=== PATIENT | female | born 1955 | race Caucasian/White ===

== ENCOUNTER → 2019-01-26 | Outpatient (REF) | payer MEDICARE ==
[2019-01-26 19:56] LABS: ALBUMIN 3.9 GM/DL (3.2-5.2); BILIRUBIN,TOTAL 0.3 MG/DL (0.2-1.0); CALCIUM LEVEL 9.1 MG/DL (8.8-10.2); CHOLESTEROL RISK RATIO 2.612 (<5); CREATININE FOR GFR 1.36 MG/DL (0.55-1.30); GLOMERULAR FILTRATION RATE 41.7 (>45); POTASSIUM SERUM 4.6 MEQ/L (3.5-5.1); TOTAL PROTEIN 6.8 GM/DL (6.4-8.2)
[2019-01-26 22:45] LABS: HEMOGLOBIN A1c 7.6 %
[2019-01-30 08:18] LABS: ANTI DOUBLE STRAND-DNA AB 1 IU/mL (0-9); ANTINUCLEAR ANTIBODIES DIRECT Positive (Negative); RNP ANTIBODIES <0.2 AI (0.0-0.9); SJOGREN'S ANTI SS-A <0.2 AI (0.0-0.9); SJOGREN'S ANTI SS-B <0.2 AI (0.0-0.9); SMITH ANTIBODIES <0.2 AI (0.0-0.9)
== END ==
LOC: M LABDRWAD 19:17
DX: M25.50 Pain in unspecified joint (principal); E11.9 Type 2 diabetes mellitus without complications; E78.00 Pure hypercholesterolemia, unspecified

== ENCOUNTER 2020-11-21 12:17 | Emergency (ER) | payer MEDICARE ==
[~2020-11-21] VITALS: Ht 170.2 cm; Wt 159.1 kg
[2020-11-21 14:37] LABS: BASO % 0.4 % (0.0-1.0); EOS # 0.1 10^3/uL (0.0-0.5); EOS % 1.4 % (0.0-3.0); HEMATOCRIT 34.3 % (36.0-47.0); LYMPH # 1.9 10^3/uL (1.5-5.0); LYMPH % 26.3 % (24.0-44.0); MEAN CORPUSCULAR HGB CONC 32.1 g/dl (32.0-36.5); MEAN CORPUSCULAR VOLUME 96.6 fl (80.0-96.0); MONO # 0.6 10^3/uL (0.0-0.8); MONO % 8.1 % (2.0-8.0); NEUTROPHILS # 4.5 10^3/uL (1.5-8.5); NEUTROPHILS % 63.1 % (36.0-66.0); PLATELET COUNT, AUTOMATED 207 10^3/uL (150-450); RED BLOOD COUNT 3.55 10^6/uL (4.00-5.40); WHITE BLOOD COUNT 7.1 10^3/uL (4.0-10.0)
[2020-11-21 15:01] LABS: ERYTHROCYTE SEDIMENTATION RATE 35 mm/hr (0-30)
[2020-11-21 15:12] LABS: ALBUMIN 3.4 GM/DL (3.2-5.2); BILIRUBIN,TOTAL 0.3 MG/DL (0.2-1.0); C REACTIVE PROTEIN QUANTITATIV 0.3 MG/DL (0.00-0.30); CALCIUM LEVEL 9.3 MG/DL (8.8-10.2); CREATININE FOR GFR 1.19 MG/DL (0.55-1.30); GLOMERULAR FILTRATION RATE 48.3 (>45); POTASSIUM SERUM 5.6 MEQ/L (3.5-5.1); TOTAL PROTEIN 6.3 GM/DL (6.4-8.2)
[2020-11-21 17:59] VITALS: BP 182/76
--- NOTE | 2020-11-21 18:16 | REPVR ---
PROCEDURE INFORMATION: Exam: MR Lumbar Spine Without Contrast Exam date and time: 11/21/2020 1:46 PM Age: 65 years old Clinical indication: Low back pain; Additional info: Back pain, R/O cauda equina TECHNIQUE: Imaging protocol: Multiplanar magnetic resonance images of the lumbar spine without intravenous contrast. COMPARISON: No relevant prior studies available. FINDINGS: Vertebrae: Unremarkable. Spinal cord: Normal signal. No cord compression. L1-L2: No significant disc disease. No significant spinal canal stenosis. No neural foraminal stenosis. L2-L3: There is a mild degenerative central spinal stenosis at L2-L3 secondary to diffuse annular bulging, thickened ligamentum flavum without significant facet joint arthropathy. Moderate bilateral lateral recess narrowing. Mild bilateral foraminal narrowing. L3-L4: There is a moderate degenerative central spinal stenosis at L3-L4 secondary to diffuse annular bulging, thickened ligamentum flavum with bilateral facet joint arthropathy. Mild bilateral lateral recess narrowing. Mild bilateral foraminal narrowing. L4-L5: Diffusely bulging annulus L4-L5 without neural compromise. Bilateral facet joint arthropathy. Mild bilateral foraminal narrowing. L5-S1: Diffusely bulging annulus L5-S1 without neural compromise. Mild bilateral facet joint arthropathy. Mild bilateral foraminal narrowing. Soft tissues: Unremarkable. IMPRESSION: 1. Degenerative spondylosis with a mild degenerative central spinal stenosis at L2-L3, moderate degenerative spinal stenosis at L3-L4. Diffusely bulging annuli demonstrated L4-L5 and L5-S1 without neural compromise. 2. Bilateral foraminal narrowing from L2-L3 to L5-S1. Bilateral lateral recess narrowing at L2-L3 and L3-L4. Electronically signed by: Dominick Romo On 11/21/2020 18:15:42 PM
[2020-11-21] MEDS ORDERED: NEUR100C PO (18:40)
--- NOTE | 2020-11-23 08:19 | ED PDOC ---
Post-Departure Follow-Up radiology report faxed to Sia Rebollar MD November 23, 2020 08:19
== END 2020-11-21 19:45 | disposition home or self-care (01) ==
LOC: M ED 12:17
DX: M47.26 Other spondylosis with radiculopathy, lumbar region (principal); M48.061 Spinal stenosis, lumbar region without neurogenic claudication; M48.07 Spinal stenosis, lumbosacral region; M51.86 Other intervertebral disc disorders, lumbar region; E11.9 Type 2 diabetes mellitus without complications; I10 Essential (primary) hypertension; E78.5 Hyperlipidemia, unspecified; Z88.0 Allergy status to penicillin; Z88.2 Allergy status to sulfonamides

== ENCOUNTER → 2021-01-06 | Outpatient (REF) | payer MEDICARE ==
[~2021-01-06] MED LIST: NEUR100C PO
[2021-01-06 19:29] LABS: HEMATOCRIT 36.1 % (36.0-47.0); HEMOGLOBIN 11.5 g/dl (12.0-15.5); MEAN CORPUSCULAR HGB CONC 31.9 g/dl (32.0-36.5); MEAN CORPUSCULAR VOLUME 97.3 fl (80.0-96.0); PLATELET COUNT, AUTOMATED 206 10^3/uL (150-450); RED BLOOD COUNT 3.71 10^6/uL (4.00-5.40); WHITE BLOOD COUNT 7.6 10^3/uL (4.0-10.0)
[2021-01-06 19:53] LABS: HEMOGLOBIN A1c 6.4 %
[2021-01-06 20:07] LABS: ALBUMIN 3.8 GM/DL (3.2-5.2); BILIRUBIN,TOTAL 0.4 MG/DL (0.2-1.0); CALCIUM LEVEL 8.7 MG/DL (8.8-10.2); CHOLESTEROL RISK RATIO 2.468 (<5); CREATININE FOR GFR 1.26 MG/DL (0.55-1.30); GLOMERULAR FILTRATION RATE 45.2 (>45); POTASSIUM SERUM 4.9 MEQ/L (3.5-5.1); THYROID STIMULATING HORMONE 6.06 uIU/ML (0.358-3.740); TOTAL PROTEIN 6.7 GM/DL (6.4-8.2)
== END ==
LOC: M LABDRWAD 18:56
PROVIDERS: ATTEND Family Medicine
DX: I10 Essential (primary) hypertension (principal); E11.9 Type 2 diabetes mellitus without complications

== ENCOUNTER 2022-01-29 17:49 | Observation (INO) | payer MEDICARE ==
[~2022-01-29] VITALS: Ht 170.2 cm; Wt 157.3 kg
[~2022-01-29 17:49] MED LIST changes: -ACTO30TA15 PO; -ALLO100T PO; -AMLO1TAB24 PO; -ATOR1TAB19 PO; -CYAN100050 PO; -INSUN SC; -INSUR SC; -LISI20TA33 PO; -VITA100093 PO; -VITMTA PO
[2022-01-29 19:33] LABS: HEMATOCRIT 33.7 % (36.0-47.0); HEMOGLOBIN 11.2 g/dl (12.0-15.5); MEAN CORPUSCULAR HEMOGLOBIN 30.7 pg (27.0-33.0); MEAN CORPUSCULAR HGB CONC 33.2 g/dl (32.0-36.5); MEAN CORPUSCULAR VOLUME 92.3 fl (80.0-96.0); PLATELET COUNT, AUTOMATED 242 10^3/uL (150-450); RED BLOOD COUNT 3.65 10^6/uL (4.00-5.40); WHITE BLOOD COUNT 10.1 10^3/uL (4.0-10.0)
[2022-01-29 20:02] LABS: BLOOD UREA NITROGEN 23 MG/DL (7-18); CALCIUM LEVEL 8.9 MG/DL (8.8-10.2); CARBON DIOXIDE LEVEL 27 MEQ/L (21-32); CHLORIDE LEVEL 94 MEQ/L (98-107); CREATININE FOR GFR 1.31 MG/DL (0.55-1.30); GLOMERULAR FILTRATION RATE 43.1 (>45); GLUCOSE, FASTING 121 MG/DL (70-100); MAGNESIUM LEVEL 1.7 MG/DL (1.8-2.4); PHOSPHORUS LEVEL 3.1 MG/DL (2.5-4.9); POTASSIUM SERUM 4.8 MEQ/L (3.5-5.1); SODIUM LEVEL 128 MEQ/L (136-145)
[2022-01-29 21:21] LABS: OSMOLALITY SERUM 269 MOSM/KG (280-301)
[2022-01-29 21:31] LABS: ETHYL ALCOHOL (ETHANOL) < 0.003 % (0.000-0.010)
[2022-01-29] MEDS ORDERED: MAG SULF 1GM/100ML (MAG RUN) 1 GM in IV 1 EA IV ONE (22:25)
[2022-01-29] MEDS ORDERED: NS 1,000 ML IV ONE (22:25)
[2022-01-29] MEDS ORDERED: ISOVUE-370 76% 100ML VIAL As Ordered ONE (22:26)
[2022-01-29] MEDS ORDERED: MAGNESIUM OXIDE 400MG TAB (MAG-OX) PO ONE (22:30)
[2022-01-29 23:43] LABS: RSV AMPLIFICATION NEGATIVE (NEGATIVE)
[2022-01-29 23:52] LABS: OSMOLALITY URINE 198 MOSM/KG (50-1400)
[2022-01-29 23:58] LABS: APPEARANCE, URINE CLEAR (CLEAR); BACTERIA, URINE AUTO NEGATIVE (NEGATIVE); BILIRUBIN, URINE AUTO NEGATIVE (NEGATIVE); BLOOD, URINE BLOOD NEGATIVE (NEGATIVE); COLOR, URINE STRAW (YELLOW); GLUCOSE, URINE (UA) AUTO NEGATIVE (NEGATIVE); KETONE, URINE AUTO NEGATIVE (NEGATIVE); LEUKOCYTE ESTERASE, URINE AUTO 2+ (NEGATIVE); NITRITE, URINE AUTO NEGATIVE (NEGATIVE); PROTEIN, URINE AUTO NEGATIVE (NEGATIVE); RBC, URINE AUTO 0 /HPF (0-3); SPECIFIC GRAVITY URINE AUTO 1.013 (1.002-1.035); SQUAMOUS EPITHELIAL CELL UR AU 0 /HPF (0-6); UROBILINOGEN, URINE AUTO 0.2 mg/dL (0.0-2.0); WBC, URINE AUTO 6 /HPF (0-3)
[2022-01-30 00:17] LABS: SODIUM,RANDOM URINE 35 MEQ/L
[2022-01-30] MEDS ORDERED: ACETAMINOPHEN TAB 650MG DOSE (2X325MG) PO PRN (02:55)
[2022-01-30] MEDS ORDERED: NS 1,000 ML IV SCH (02:55)
[2022-01-30 03:05] VITALS: BP 148/88
[2022-01-30] MEDS ORDERED: amLODIPine 5 MG TAB PO ONE (03:05)
[2022-01-30 03:27] VITALS: BP 148/88
[2022-01-30] MEDS ORDERED: ACTO30TA15 PO (03:31)
[2022-01-30] MEDS ORDERED: INSUN SC (03:31)
[2022-01-30] MEDS ORDERED: LISI20TA33 PO (03:31)
[2022-01-30] MEDS ORDERED: VITA100093 PO (03:31)
[2022-01-30] MEDS ORDERED: VITMTA PO (03:31)
[2022-01-30] MEDS ORDERED: ATOR1TAB19 PO (03:31)
[2022-01-30] MEDS ORDERED: INSUR SC (03:31)
[2022-01-30] MEDS ORDERED: ALLO100T PO (03:31)
[2022-01-30] MEDS ORDERED: CYAN100050 PO (03:31)
[2022-01-30] MEDS ORDERED: HOME MED LIST COMPLETE! XX SCH (03:35)
[2022-01-30 08:31] LABS: BASO % 0.1 % (0.0-1.0); EOS # 0.1 10^3/uL (0.0-0.5); HEMOGLOBIN 10.7 g/dl (12.0-15.5); LYMPH # 1.5 10^3/uL (1.5-5.0); LYMPH % 20.6 % (24.0-44.0); MEAN CORPUSCULAR HEMOGLOBIN 31.1 pg (27.0-33.0); MEAN CORPUSCULAR HGB CONC 33.4 g/dl (32.0-36.5); MONO # 0.5 10^3/uL (0.0-0.8); MONO % 7.4 % (2.0-8.0); NEUTROPHILS % 70.5 % (36.0-66.0); PLATELET COUNT, AUTOMATED 215 10^3/uL (150-450); RED BLOOD COUNT 3.44 10^6/uL (4.00-5.40)
[2022-01-30] MEDS ORDERED: GLUCAGON INJ 1MG VIAL SC PRN (08:35)
[2022-01-30] MEDS ORDERED: GLUCOSE 4GM CHEW TABLET PO PRN (08:35)
[2022-01-30] MEDS ORDERED: DEXTROSE 50% 50 ML SYRINGE IV PRN (08:35)
[2022-01-30 09:02] LABS: CALCIUM LEVEL 8.8 MG/DL (8.8-10.2); CREATININE FOR GFR 1.16 MG/DL (0.55-1.30); GLOMERULAR FILTRATION RATE 49.6 (>45); POTASSIUM SERUM 4.7 MEQ/L (3.5-5.1)
[2022-01-30 09:52] LABS: MAGNESIUM LEVEL 1.9 MG/DL (1.8-2.4)
[2022-01-30] MEDS ORDERED: AMLO1TAB24 PO (10:29)
[2022-01-30] MEDS ORDERED: INSULIN LISPRO (NovoLOG) PER UNIT SC SCH ×2 (12:00→21:00)
== END 2022-01-30 13:05 | disposition home or self-care (01) ==
LOC: M ED 17:49 → M ED INP 17:50
PROVIDERS: ADMIT Internal Medicine; ATTEND Internal Medicine
DX: E87.1 Hypo-osmolality and hyponatremia (principal); C92.01 Acute myeloblastic leukemia, in remission; D69.3 Immune thrombocytopenic purpura; K59.00 Constipation, unspecified; M10.9 Gout, unspecified; N18.30 Chronic kidney disease, stage 3 unspecified; I12.9 Hypertensive chronic kidney disease with stage 1 through stage 4 chronic kidney disease, or unspecified chronic kidney disease; E83.42 Hypomagnesemia; Z79.899 Other long term (current) drug therapy; Z79.4 Long term (current) use of insulin; Z88.0 Allergy status to penicillin; Z88.2 Allergy status to sulfonamides
CPT/HCPCS: 36415; 74018; 74177; 80048; 81001; 82077; 83735; 83930; 83935; 84100; 84300; 85025; 85027; 87631; 93005; 96374; 96375; 97161; 99285; G0378; J3475; Q9967

== ENCOUNTER → 2022-01-29 | Outpatient (CLI) | payer MEDICARE ==
[~2022-01-29] MED LIST changes: +ACTO30TA15 PO; +ALLO100T PO; +AMLO1TAB24 PO; +ATOR1TAB19 PO; +CYAN100050 PO; +INSUN SC; +INSUR SC; +LISI20TA33 PO; +VITA100093 PO; +VITMTA PO
== END ==
LOC: M ADAMS 08:53
PROVIDERS: ATTEND Physician Assistant Surgical
DX: K59.00 Constipation, unspecified (principal)

== ENCOUNTER → 2022-02-24 | Outpatient (REF) | payer MEDICARE ==
[~2022-02-24] MED LIST changes: +ACTO30TA15 PO; +ALLO100T PO; +AMLO1TAB24 PO; +ATOR1TAB19 PO; +CYAN100050 PO; +INSUN SC; +INSUR SC; +LISI20TA33 PO; +VITA100093 PO; +VITMTA PO
[2022-02-24 18:44] LABS: PERCENT SATURATION 19.9 % (13.2-45.0)
== END ==
LOC: M LAB REF 17:12
PROVIDERS: ATTEND Internal Medicine Nephrology
DX: D50.9 Iron deficiency anemia, unspecified (principal)

== ENCOUNTER 2023-01-03 08:33 | Emergency (ER) | payer MEDICARE ==
[~2023-01-03] VITALS: Ht 170.2 cm; Wt 159.8 kg
[~2023-01-03 08:33] MED LIST changes: +CYAN-1 PO; -CYAN100050 PO
[2023-01-03] MEDS ORDERED: NS 500 ML IV ONE (10:40)
[2023-01-03 11:04] LABS: BASO % 0.3 % (0.0-1.0); EOS # 0.1 10^3/uL (0.0-0.5); EOS % 0.8 % (0.0-3.0); HEMATOCRIT 33.9 % (36.0-47.0); HEMOGLOBIN 11.2 g/dl (12.0-15.5); LYMPH # 1.9 10^3/uL (1.5-5.0); LYMPH % 24.4 % (24.0-44.0); MEAN CORPUSCULAR HEMOGLOBIN 31.2 pg (27.0-33.0); MEAN CORPUSCULAR VOLUME 94.4 fl (80.0-96.0); MONO # 0.6 10^3/uL (0.0-0.8); MONO % 7.9 % (2.0-8.0); NEUTROPHILS # 5.2 10^3/uL (1.5-8.5); NEUTROPHILS % 66.2 % (36.0-66.0); PLATELET COUNT, AUTOMATED 221 10^3/uL (150-450); RED BLOOD COUNT 3.59 10^6/uL (4.00-5.40); WHITE BLOOD COUNT 7.8 10^3/uL (4.0-10.0)
[2023-01-03 11:26] LABS: ALBUMIN 4.1 G/DL (3.2-5.2); BILIRUBIN,DIRECT 0.2 MG/DL (<0.4); BILIRUBIN,TOTAL 0.6 MG/DL (0.3-1.2); CALCIUM LEVEL 8.6 MG/DL (8.3-10.6); CREATININE FOR GFR 1.44 MG/DL (0.55-1.30); GLOMERULAR FILTRATION RATE 38.5 (>45); POTASSIUM SERUM 4.8 MMOL/L (3.5-5.1); TOTAL PROTEIN 6.7 G/DL (5.7-8.2)
[2023-01-03] MEDS ORDERED: ISOVUE-370 76% 100ML VIAL As Ordered ONE ×2 (13:29→13:46)
[2023-01-03 15:00] VITALS: BP 169/72; TEMP 97.2; O2SAT 97
== END 2023-01-03 15:06 | disposition home or self-care (01) ==
LOC: M ED 08:33
DX: R10.9 Unspecified abdominal pain (principal); R19.7 Diarrhea, unspecified; N18.32 Chronic kidney disease, stage 3b; G47.33 Obstructive sleep apnea (adult) (pediatric); E10.9 Type 1 diabetes mellitus without complications; Z88.0 Allergy status to penicillin; Z88.2 Allergy status to sulfonamides; Z79.02 Long term (current) use of antithrombotics/antiplatelets; Z79.811 Long term (current) use of aromatase inhibitors; Z79.899 Other long term (current) drug therapy
CPT/HCPCS: 36415; 71045; 74177; 80048; 80076; 81001; 82150; 83690; 85025; 86618; 87086; 93041; 93971; 99284; Q9967

== ENCOUNTER → 2023-01-05 | Outpatient (REF) | payer MEDICARE | LOC: M LAB REF 13:31 | PROVIDERS: ATTEND Emergency Medicine | DX: R19.7 Diarrhea, unspecified (principal) ==

== ENCOUNTER 2023-01-13 09:39 | Emergency (ER) | payer MEDICARE ==
[~2023-01-13] VITALS: Ht 170.2 cm; Wt 156.9 kg
[2023-01-13] MEDS ORDERED: NITR-67 PO (10:03)
[2023-01-13 13:53] LABS: BASO % 0.5 % (0.0-1.0); EOS # 0.1 10^3/uL (0.0-0.5); EOS % 1.3 % (0.0-3.0); HEMATOCRIT 37.7 % (36.0-47.0); HEMOGLOBIN 12.2 g/dl (12.0-15.5); LYMPH # 2.4 10^3/uL (1.5-5.0); LYMPH % 28.1 % (24.0-44.0); MEAN CORPUSCULAR HEMOGLOBIN 30.7 pg (27.0-33.0); MEAN CORPUSCULAR HGB CONC 32.4 g/dl (32.0-36.5); MONO # 0.6 10^3/uL (0.0-0.8); MONO % 6.5 % (2.0-8.0); NEUTROPHILS # 5.3 10^3/uL (1.5-8.5); NEUTROPHILS % 63.2 % (36.0-66.0); PLATELET COUNT, AUTOMATED 242 10^3/uL (150-450); RED BLOOD COUNT 3.97 10^6/uL (4.00-5.40); WHITE BLOOD COUNT 8.4 10^3/uL (4.0-10.0)
[2023-01-13 14:10] LABS: ALBUMIN 4.4 G/DL (3.2-5.2); BILIRUBIN,DIRECT 0.2 MG/DL (<0.4); BILIRUBIN,TOTAL 0.6 MG/DL (0.3-1.2); CALCIUM LEVEL 8.9 MG/DL (8.3-10.6); CREATININE FOR GFR 1.39 MG/DL (0.55-1.30); GLOMERULAR FILTRATION RATE 40.1 (>45); POTASSIUM SERUM 4.8 MMOL/L (3.5-5.1); TOTAL PROTEIN 7.3 G/DL (5.7-8.2)
[2023-01-13 14:28] VITALS: BP 153/80; TEMP 97.5; O2SAT 99
[2023-01-13] MEDS ORDERED: FOSFOMYCIN TROMETHAMINE 3 GM POWDER PACKET (MONUROL) PO ONE (15:00)
== END 2023-01-13 15:14 | disposition home or self-care (01) ==
LOC: M ED 09:39
DX: N39.0 Urinary tract infection, site not specified (principal); I10 Essential (primary) hypertension; G47.33 Obstructive sleep apnea (adult) (pediatric); N18.32 Chronic kidney disease, stage 3b; E11.9 Type 2 diabetes mellitus without complications; Z88.0 Allergy status to penicillin; Z88.2 Allergy status to sulfonamides; Z79.02 Long term (current) use of antithrombotics/antiplatelets; Z79.811 Long term (current) use of aromatase inhibitors; Z79.899 Other long term (current) drug therapy

== ENCOUNTER → 2023-12-20 | Outpatient (REF) | payer MEDICARE ==
[~2023-12-20] MED LIST changes: +NITR-67 PO
[2023-12-21 19:15] LABS: PERCENT SATURATION 22.4 % (13.2-45.0)
== END ==
LOC: M LAB REF 17:25
PROVIDERS: ATTEND Internal Medicine Nephrology
DX: D50.9 Iron deficiency anemia, unspecified (principal)

== ENCOUNTER 2024-03-18 08:36 | Emergency (ER) | payer MEDICARE ==
[~2024-03-18] VITALS: Ht 170.2 cm; Wt 155.4 kg
[~2024-03-18 08:36] MED LIST changes: -HOLTER MONITOR XX; -MAGN100T PO
[2024-03-18] MEDS ORDERED: MAGN100T PO (08:46)
[2024-03-18 10:08] LABS: BASO % 0.4 % (0.0-1.0); EOS # 0.1 10^3/uL (0.0-0.5); HEMATOCRIT 35.1 % (36.0-47.0); HEMOGLOBIN 11.4 g/dl (12.0-15.5); LYMPH # 2.5 10^3/uL (1.5-5.0); LYMPH % 28.1 % (24.0-44.0); MEAN CORPUSCULAR HEMOGLOBIN 31.8 pg (27.0-33.0); MEAN CORPUSCULAR HGB CONC 32.5 g/dl (32.0-36.5); MONO # 0.6 10^3/uL (0.0-0.8); MONO % 6.2 % (2.0-8.0); NEUTROPHILS # 5.7 10^3/uL (1.5-8.5); PLATELET COUNT, AUTOMATED 236 10^3/uL (150-450); RED BLOOD COUNT 3.58 10^6/uL (4.00-5.40); WHITE BLOOD COUNT 8.9 10^3/uL (4.0-10.0)
[2024-03-18 10:33] LABS: CK-MB VALUE MASS < 1.0 NG/ML (<3.6)
[2024-03-18 10:36] LABS: BLOOD UREA NITROGEN 41 MG/DL (9-23); CALCIUM LEVEL 9.8 MG/DL (8.3-10.6); CARBON DIOXIDE LEVEL 28 MMOL/L (20-31); CHLORIDE LEVEL 110 MMOL/L (98-107); CPK CREATINE PHOSPHOKINASE 87 U/L (34-145); GLOMERULAR FILTRATION RATE 36.7 (>45); GLUCOSE, FASTING 105 MG/DL (74-106); MAGNESIUM LEVEL 1.7 MG/DL (1.8-2.4); MB/CK RELATIVE INDEX 1.14 (< OR =4); SODIUM LEVEL 141 MMOL/L (136-145)
[2024-03-18 10:37] LABS: THYROID STIMULATING HORMONE 6.145 uIU/ML (0.55-4.78)
[2024-03-18 10:38] LABS: FREE T4 1.05 NG/DL (0.89-1.76)
[2024-03-18 11:36] LABS: CK-MB VALUE MASS < 1.0 NG/ML (<3.6)
[2024-03-18 11:38] LABS: CPK CREATINE PHOSPHOKINASE 86 U/L (34-145); MB/CK RELATIVE INDEX 1.16 (< OR =4)
[2024-03-18 11:51] VITALS: O2SAT 96
[2024-03-18] MEDS ORDERED: HOLTER MONITOR XX (12:30)
[2024-03-18 12:41] VITALS: BP 160/70; TEMP 96.5
== END 2024-03-18 12:42 | disposition home or self-care (01) ==
LOC: M ED 08:36
DX: R00.2 Palpitations (principal); I45.10 Unspecified right bundle-branch block; E11.9 Type 2 diabetes mellitus without complications; I10 Essential (primary) hypertension; G47.33 Obstructive sleep apnea (adult) (pediatric); N18.32 Chronic kidney disease, stage 3b; Z88.0 Allergy status to penicillin; Z88.2 Allergy status to sulfonamides; Z79.4 Long term (current) use of insulin; Z79.811 Long term (current) use of aromatase inhibitors; Z79.02 Long term (current) use of antithrombotics/antiplatelets; Z79.899 Other long term (current) drug therapy

== ENCOUNTER → 2024-03-18 | Outpatient (CLI) | payer MEDICARE ==
[~2024-03-18] MED LIST changes: +HOLTER MONITOR XX; +MAGN100T PO
== END ==
LOC: M EKG 12:59
PROVIDERS: ATTEND Physician Assistant Medical
DX: R00.2 Palpitations (principal); Z53.9 Procedure and treatment not carried out, unspecified reason

== ENCOUNTER 2025-04-22 15:25 | Emergency (ER) | payer MEDICARE ==
[~2025-04-22] VITALS: Ht 170.2 cm; Wt 152.5 kg
[~2025-04-22 15:25] MED LIST changes: +HOLTER MONITOR XX; +MAGN100T PO
[2025-04-22 15:38] VITALS: BP 147/65; TEMP 98; O2SAT 96
[2025-04-22] MEDS: DOXYCYCLINE HYCLATE 100 MG TABLET PO ONE (16:45)
== END 2025-04-22 17:03 | disposition home or self-care (01) ==
LOC: M ED 15:25
DX: S40.862A Insect bite (nonvenomous) of left upper arm, initial encounter (principal); I10 Essential (primary) hypertension; E78.5 Hyperlipidemia, unspecified; E11.9 Type 2 diabetes mellitus without complications; N18.32 Chronic kidney disease, stage 3b; G47.33 Obstructive sleep apnea (adult) (pediatric); J44.9 Chronic obstructive pulmonary disease, unspecified; Z79.02 Long term (current) use of antithrombotics/antiplatelets; Z79.899 Other long term (current) drug therapy; Z79.4 Long term (current) use of insulin; Z88.0 Allergy status to penicillin; Z88.2 Allergy status to sulfonamides; Y92.9 Unspecified place or not applicable; Y93.89 Activity, other specified; Y99.9 Unspecified external cause status